=== PATIENT | female | born 1985 | race Caucasian/White ===

== ENCOUNTER → 2019-11-25 14:55 | Outpatient (CLI) | payer OTHER, SELFPAY ==
[2019-11-25 18:34] LABS: Thyroid Stim Hormone (TSH) 0.65 uIU/mL (0.358-3.74)
== END ==
PROVIDERS: PCP Family Medicine; Referring Provider Family Medicine; Visit Provider Family Medicine
DX: F41.9 Anxiety disorder, unspecified (principal)
CPT/HCPCS: 36415; 84443

== ENCOUNTER → 2020-07-16 16:58 | Outpatient (CLI) | payer OTHER, SELFPAY ==
[2020-07-18 20:07] LABS: Chlamydia By Nucleic Acid AMP Negative (Negative)
[2020-07-18 21:05] LABS: Gonococcus By Nucleic Acid AMP Negative (Negative)
[2020-07-19 11:33] LABS: HPV APTIMA, High Risk Negative (Negative)
== END ==
PROVIDERS: PCP Family Medicine; Visit Provider Student in an Organized Health Care Education/Training Program
DX: Z12.4 Encounter for screening for malignant neoplasm of cervix (principal); Z11.3 Encounter for screening for infections with a predominantly sexual mode of transmission; Z32.01 Encounter for pregnancy test, result positive
CPT/HCPCS: 87491; 87591; 87624; 88175; G0145

== ENCOUNTER → 2020-07-30 10:46 | Outpatient (CLI) | payer OTHER, SELFPAY ==
[2020-07-30 12:07] LABS: Absolute Lymphocyte Count 1.57 X10^3/uL (0.83-4.51); Absolute Neutrophil Count 6.1 X10^3/uL (2.0-7.7); Basophil# 0.02 X10^3/uL; Basophil% 0.2 % (0-1); Eosinophil# 0.03 X10^3/uL; Eosinophils% 0.4 % (0-5); Hematocrit 40.5 % (37-47); Hemoglobin 13.4 g/dL (12.0-15.0); Lymphocyte # 1.57 X10^3/ul (0.83-4.51); Lymphocyte % 19.2 % (19-41); Mean Corp Hgb Conc 33.1 g/dL (32-36); Mean Corpuscular Hgb 29.3 pg (27.0-32.0); Mean Corpuscular Volume 88.4 fL (81-99); Mean Platelet Vol. 9.4 fl (6.2-12.0); Monocyte# 0.42 X10^3/uL; Monocyte% 5.1 % (0-10); NRBC Flagged by Analyzer 0 % (0-5); Neutrophil # 6.11 X10^3/uL (2.7-7.7); Neutrophil % 74.7 % (47-70); Platelet Count 299 K/mm3 (150-450); RBC Distribution Width CV 12.9 % (11.6-14.6); Red Blood Count 4.58 M/mm3 (4.2-5.4); White Blood Count 8.2 K/mm3 (4.4-11.0)
== END ==
PROVIDERS: PCP Family Medicine; Visit Provider Student in an Organized Health Care Education/Training Program
DX: Z34.81 Encounter for supervision of other normal pregnancy, first trimester (principal)
CPT/HCPCS: 36415; 85025; 87086; 87088; 87186

== ENCOUNTER → 2020-08-27 09:40 | Outpatient (CLI) | payer OTHER, SELFPAY ==
[2020-08-27 10:47] LABS: Absolute Lymphocyte Count 1.38 X10^3/uL (0.83-4.51); Basophil# 0.03 X10^3/uL; Basophil% 0.3 % (0-1); Eosinophil# 0.05 X10^3/uL; Eosinophils% 0.6 % (0-5); Hematocrit 38.1 % (37-47); Hemoglobin 12.8 g/dL (12.0-15.0); Lymphocyte # 1.38 X10^3/ul (0.83-4.51); Lymphocyte % 15.6 % (19-41); Mean Corp Hgb Conc 33.6 g/dL (32-36); Mean Corpuscular Hgb 29.9 pg (27.0-32.0); Mean Platelet Vol. 9.5 fl (6.2-12.0); Monocyte# 0.37 X10^3/uL; Monocyte% 4.2 % (0-10); NRBC Flagged by Analyzer 0 % (0-5); Neutrophil # 6.97 X10^3/uL (2.7-7.7); Platelet Count 269 K/mm3 (150-450); RBC Distribution Width CV 13.4 % (11.6-14.6); RBC Distribution Width SD 44.1 fl (35.1-43.9); Red Blood Count 4.28 M/mm3 (4.2-5.4); White Blood Count 8.8 K/mm3 (4.4-11.0)
[2020-08-27 11:35] LABS: HIV - WCH Non-Reactive (Nonreactive); Hepatitis B Surface Antigen Non-Reactive (Nonreactive); Hepatitis C Antibody Non-Reactive (Nonreactive); Rubella IgG Reactive (Nonreactive); Syphilis Antibodies Non-reactive
== END ==
PROVIDERS: PCP Family Medicine; Visit Provider Student in an Organized Health Care Education/Training Program
DX: Z34.82 Encounter for supervision of other normal pregnancy, second trimester (principal)
CPT/HCPCS: 36415; 85025; 86703; 86762; 86780; 86803; 87077; 87086; 87088; 87186; 87340

== ENCOUNTER → 2020-09-28 11:08 | Outpatient (CLI) | payer OTHER, SELFPAY ==
[2020-09-28 11:12] LABS: Bacteria 0 SEEN /hpf (None Seen); Mucous, Urine 0 SEEN /hpf (<or=2+); Red Blood Cells-Urine 0 SEEN /hpf (0-5); Squamous Epithelial Cells - UA 0 SEEN /hpf (5-10); White Blood Cells 0 SEEN /hpf (0-5)
[2020-09-28 11:59] LABS: Color, Urine Yellow (Yellow); Glucose, Dipstick Normal (Normal); Ketone-Dipstick Negative (Negative); Leukocyte Esterase-Dipstick Negative /ul (Negative); Nitrite-Dipstick Negative (Negative); Occult Blood-Urine Negative /ul (Negative); Protein-Dipstick Negative (Negative); Specific Gravity, Urine 1.005 (1.002-1.030); Urine Bilirubin Dipstick Negative (Negative); Urine Clarity Clear (Clear); Urine Urobilinogen Normal (Normal)
== END ==
PROVIDERS: PCP Family Medicine; Visit Provider Obstetrics & Gynecology
DX: O26.892 Other specified pregnancy related conditions, second trimester (principal); R30.0 Dysuria
CPT/HCPCS: 81001; 87086; 87088

== ENCOUNTER → 2020-10-24 11:01 | Outpatient (CLI) | payer OTHER, SELFPAY | PROVIDERS: Visit Provider Obstetrics & Gynecology | DX: Z34.82 Encounter for supervision of other normal pregnancy, second trimester (principal) | CPT/HCPCS: 36415 ==

== ENCOUNTER → 2020-11-23 09:49 | Outpatient (CLI) | payer OTHER, SELFPAY ==
[2020-11-23 10:10] LABS: Hematocrit 36.1 % (37-47); Hemoglobin 12.3 g/dL (12.0-15.0); Mean Corp Hgb Conc 34.1 g/dL (32-36); Mean Corpuscular Hgb 31.6 pg (27.0-32.0); Mean Corpuscular Volume 92.8 fL (81-99); Platelet Count 252 K/mm3 (150-450); RBC Distribution Width CV 13.1 % (11.6-14.6); RBC Distribution Width SD 44.3 fl (35.1-43.9); Red Blood Count 3.89 M/mm3 (4.2-5.4); White Blood Count 8.9 K/mm3 (4.4-11.0)
[2020-11-23 10:41] LABS: Glucose Challenge Gest 1H 50g 163 mg/dL (70-140)
== END ==
PROVIDERS: Visit Provider Obstetrics & Gynecology
DX: Z34.82 Encounter for supervision of other normal pregnancy, second trimester (principal)
CPT/HCPCS: 36415; 82950; 85027

== ENCOUNTER → 2020-12-03 09:58 | Outpatient (CLI) | payer OTHER, SELFPAY ==
[2020-12-03 11:36] LABS: Glucose GTT-Gestation. Fasting 81 mg/dL (<105)
[2020-12-03 12:34] LABS: Glucose GTT-Gestational 1 Hr 204 mg/dL (<190)
[2020-12-03 12:51] LABS: Glucose GTT-Gestational 2 Hr 160 mg/dL (<165)
[2020-12-03 14:20] LABS: Glucose GTT-Gestational 3 Hr 49 L (<145)
== END ==
PROVIDERS: PCP Family Medicine; Referring Provider Obstetrics & Gynecology; Visit Provider Obstetrics & Gynecology
DX: O24.912 Unspecified diabetes mellitus in pregnancy, second trimester (principal); Z3A.00 Weeks of gestation of pregnancy not specified
CPT/HCPCS: 36415; 82951; 82952

== ENCOUNTER → 2020-12-28 14:22 | Outpatient (CLI) | payer OTHER, SELFPAY | PROVIDERS: PCP Family Medicine; Visit Provider Obstetrics & Gynecology | DX: Z34.83 Encounter for supervision of other normal pregnancy, third trimester (principal) | CPT/HCPCS: 87086; 87088; 87186 ==

== ENCOUNTER 2021-01-13 13:15 | Outpatient (CLI) | payer OTHER, SELFPAY ==
[2021-01-13 13:22] VITALS: BMI 28.0
[2021-01-13 13:32] VITALS: BP 137/88; PULSE 78; TEMP 37.3
--- NOTE | 2021-01-18 09:23 | OB.TRI.NOTE ---
HPI - General HPI Narrative ROLANDO ROE, is a 35 F who presents for routine nonstress test for gestational diabetes at approximately 33 weeks gestation. Maternal Data Information Final JIMMY: 03/06/21 PFSH PFSH Home Medications aspirin [Aspir-81] 1 mg PO DAILY 01/13/21 [History Last Taken 01/12/21] 95-iron nvp-gzpmw-zpx [ + DHA] 1 pkg PO DAILY 01/13/21 [History Last Taken 01/12/21] Allergy/AdvReac Type Severity Reaction Status Date / Time No Known Allergies Allergy Verified 01/13/21 13:33 NST FHR Rate Baby A NST Reactive:: Yes FHR Category:: Category I Assessment & Plan (1) Gestational diabetes: PLAN: 33-week intrauterine with gestational diabetes for routine nonstress test. NST is reactive. Continuing present care.
== END 2021-01-13 13:55 | disposition home or self-care (01) ==
LOC: WPOUT 13:20 → WP 13:21
PROVIDERS: PCP Family Medicine; Referring Provider Obstetrics & Gynecology; Visit Provider Obstetrics & Gynecology
DX: O24.419 Gestational diabetes mellitus in pregnancy, unspecified control (principal); Z3A.33 33 weeks gestation of pregnancy
CPT/HCPCS: 59025; 59050; 87426; 99218; G0378

== ENCOUNTER → 2021-01-25 11:30 | Outpatient (CLI) | payer OTHER, SELFPAY | PROVIDERS: PCP Family Medicine; Visit Provider Obstetrics & Gynecology | DX: Z34.83 Encounter for supervision of other normal pregnancy, third trimester (principal); R30.0 Dysuria | CPT/HCPCS: 87086; 87088; 87186 ==

== ENCOUNTER → 2021-02-08 11:18 | Outpatient (CLI) | payer OTHER, SELFPAY | PROVIDERS: PCP Family Medicine; Visit Provider Obstetrics & Gynecology | DX: Z36.85 Encounter for antenatal screening for Streptococcus B (principal); Z34.83 Encounter for supervision of other normal pregnancy, third trimester; R30.0 Dysuria | CPT/HCPCS: 87081; 87086 ==

== ENCOUNTER 2021-02-15 10:10 | Outpatient (CLI) | payer OTHER, SELFPAY ==
[2021-02-15 10:20] VITALS: BMI 29.7
--- NOTE | 2021-02-15 12:30 | OB.TRI.NOTE ---
HPI - General HPI Narrative ROLANDO ROE, is a 35 F who presents at 37 2/7 wga (JIMMY 03/06/21) for schedule NST for AMA with GDM. PFSH PFSH Home Medications aspirin [Aspir-81] 1 mg PO DAILY 01/13/21 [History Last Taken 02/14/21 18:00] 95-iron eus-jyjcv-xpz [ + DHA] 1 pkg PO DAILY 01/13/21 [History Last Taken 02/14/21 18:00] Allergy/AdvReac Type Severity Reaction Status Date / Time No Known Allergies Allergy Verified 01/13/21 13:33 NST FHR Rate Baby A Baseline: 135 Variability:: Moderate Accelerations:: 15 x 15 Decelerations:: None NST Reactive:: Yes FHR Category:: Category I Uterine Activity:: no contractions Assessment & Plan (1) : QUALIFIERS: Weeks of gestation: 37 weeks Qualified Code(s): Z3A.37 - 37 weeks gestation of (2) AMA (advanced maternal age) multigravida 35+: QUALIFIERS: Trimester: third trimester Qualified Code(s): O09.523 - Supervision of elderly multigravida, third trimester (3) Gestational diabetes: QUALIFIERS: Gestational diabetes mellitus control: diet-controlled Trimester: third trimester Qualified Code(s): O24.410 - Gestational diabetes mellitus in , diet controlled
== END 2021-02-15 11:00 | disposition home or self-care (01) ==
LOC: WPOUT 10:17 → WP 10:18
PROVIDERS: PCP Family Medicine; Visit Provider Obstetrics & Gynecology
DX: O24.410 Gestational diabetes mellitus in pregnancy, diet controlled (principal); O09.523 Supervision of elderly multigravida, third trimester; Z3A.37 37 weeks gestation of pregnancy; Z79.82 Long term (current) use of aspirin
CPT/HCPCS: 59025; 59050; 99218; G0378

== ENCOUNTER 2021-03-01 05:00 | Inpatient (IN) | payer OTHER, SELFPAY ==
[2021-03-01] VITALS (23 sets, daily range): BP systolic 116–156; BP diastolic 79–93; PULSE 56–75; RESP 13–18; TEMP 36.2–37.1; O2SAT 97–100; BMI 28.8
[2021-03-01] MEDS: Lactated Ringers 1,000 ML 999 ML IV (05:35)
[2021-03-01 05:44] LABS: Absolute Lymphocyte Count 1.51 X10^3/uL (0.83-4.51); Absolute Neutrophil Count 5.7 X10^3/uL (2.0-7.7); Basophil# 0.04 X10^3/uL; Basophil% 0.5 % (0-1); Eosinophil# 0.09 X10^3/uL; Eosinophils% 1.1 % (0-5); Hematocrit 37.9 % (37-47); Hemoglobin 12.8 g/dL (12.0-15.0); Lymphocyte # 1.51 X10^3/ul (0.83-4.51); Lymphocyte % 18.9 % (19-41); Mean Corp Hgb Conc 33.8 g/dL (32-36); Mean Corpuscular Hgb 30.9 pg (27.0-32.0); Mean Corpuscular Volume 91.5 fL (81-99); Mean Platelet Vol. 9.4 fl (6.2-12.0); Monocyte# 0.58 X10^3/uL; Monocyte% 7.3 % (0-10); NRBC Flagged by Analyzer 0 % (0-5); Neutrophil % 71.4 % (47-70); Platelet Count 202 K/mm3 (150-450); RBC Distribution Width CV 12.9 % (11.6-14.6); RBC Distribution Width SD 42.8 fl (35.1-43.9); Red Blood Count 4.14 M/mm3 (4.2-5.4)
[2021-03-01] MEDS: Acetaminophen 500 MG Tablet 1000 MG PO ×3 (06:19→18:06)
[2021-03-01] MEDS: Lactated Ringers 1,000 ML 150 ML IV (06:28)
[2021-03-01 06:30] LABS: Bedside Glucose 74 mg/dL (70-110)
[2021-03-01] MEDS: Sodium Citrate/Citric Acid 30 ML UDC PO (07:24)
--- NOTE | 2021-03-01 07:32 | HP.PCM.OB_ITS ---
HPI - General General Date of Admission: 03/01/21 HPI Narrative ROLANDO ROE, is a 35 F who presents for scheduled C/S for breech presentation, also with c/o leaking of amnionitic fluid and contractions. issues -Gestational DM -Breech presentation -Recurrent UTI -AMA -Anxiety Maternal Data Information JIMMY Calculator Estimated Delivery Date Method Current WG Current Estimate 03/06/21 LMP (Certain) 39w 2d PFSH PFSH Medical History Anxiety Arm fracture, left Gestational diabetes Home Medications aspirin [Aspir-81] 1 mg PO DAILY 01/13/21 [History Last Taken 02/14/21 18:00] 95-iron xkx-kyjhm-wry [ + DHA] 1 pkg PO DAILY 01/13/21 [History Last Taken 02/27/21] Allergy/AdvReac Type Severity Reaction Status Date / Time No Known Allergies Allergy Verified 01/13/21 13:33 Family History Father Diabetes Surgical History H/O spinal fusion History of back surgery Social History Smoking Status: Former smoker History 2 Elective abortions Hx Para 1 Spontaneous abortions Hx # Term Pregnancies 1 Ectopic pregnancies Hx # Pregnancies Multiple births # of living children 1 Vital Signs Vital Signs Vital Signs: 03/01/21 05:45 03/01/21 06:36 03/01/21 06:37 Temperature 97.4 F L Temperature Source Temporal Pulse Rate 64 64 66 Respiratory Rate 18 Blood Pressure 156/89 H 129/91 H 129/91 H Blood Pressure Mean 103 BP Systolic 156 129 BP Diastolic 89 91 Pulse Ox 98 Oxygen Delivery Method Room Air Weight Weight: 73.936 kg Body Mass Index (BMI) 28.8 Physical Exam Const alert, oriented x3 and no apparent distress HEENT normocephalic Resp normal respiratory effort, normal air movement and clear to auscultation bilaterally Cardio regular rate and regular rhythm GI normal to inspection, nondistended, normoactive bowel sounds, soft to palpation, non-tender and non-distended Inspection: gravid Labs Labs Labs: Blood Type O POSITIVE Antibody Screen NEGATIVE Hct 37.9 % (37-47) Hgb 12.8 g/dL (12.0-15.0) Syphilis Total Ab Non-reactive Rubella IgG Antibody Reactive (Nonreactive) Hep Bs Antigen Non-Reactive (Nonreactive) Neisseria gonorrhoeae DNA (VIVEK) Negative (Negative) HIV 1&2 Antibody Non-Reactive (Nonreactive) Glucose 1 Hr 50 gm 163 mg/dL (70-140) H Miscellaneous Test Assessment & Plan (1) Gestational diabetes: QUALIFIERS: Gestational diabetes mellitus control: diet-controlled Trimester: third trimester Qualified Code(s): O24.410 - Gestational diabetes mellitus in , diet controlled (2) : QUALIFIERS: Weeks of gestation: 37 weeks Qualified Code(s): Z3 A.37 - 37 weeks gestation of PLAN: Proceed with primary C/S for breech presentation (3) AMA (advanced maternal age) multigravida 35+: QUALIFIERS: Trimester: third trimester Qualified Code(s): O09.523 - Supervision of elderly multigravida, third trimester
[2021-03-01] MEDS: Cefazolin 2 GM in 0.9% Normal Saline 100 ML IV (07:35)
[2021-03-01 07:49] LABS: Amphetamine Urine VISTA NEGATIVE (<1000 ng/mL); Barbiturate Urine VISTA NEGATIVE (< 200 ng/mL); Benzodiazepine Urine VISTA NEGATIVE (< 200 ng/mL); Cocaine Urine VISTA NEGATIVE (< 300 ng/mL); Ecstacy Urine VISTA NEGATIVE (< 500 ng/mL); Methadone Urine VISTA NEGATIVE (< 300 ng/mL); PCP Urine VISTA NEGATIVE (< 25 ng/mL); THC Urine VISTA NEGATIVE (< 50 ng/mL); Vista UDS pH Range 7
--- NOTE | 2021-03-01 08:29 | OP.PCM_ITS ---
Assessment & Plan (1) Breech delivery: COMMENT: Footling (2) delivery delivered: (3) Gestational diabetes: QUALIFIERS: Gestational diabetes mellitus control: diet-controlled Trimester: third trimester Qualified Code(s): O24.410 - Gestational diabetes mellitus in , diet controlled Maternal Data Information JIMMY Calculator Estimated Delivery Date Method Current WG Current Estimate 03/06/21 LMP (Certain) 39w 2d Details Operative Information Date of Procedure: 03/01/21 Pre-Operative Diagnosis: 1. 39-2/7 weeks gestation 2. breech presentation 3. Spontaneous rupture of membranes Post-Operative Diagnosis: 1. 39-2/7 weeks gestation 2. Footling breech presentation 3. Spontaneous rupture of membranes Indications for : Breech Indications Narrative: 35-year-old 2 para 1-0-0-1 at 39-2/7 weeks gestational age presents for scheduled primary section for breech presentation with complaint of spontaneous rupture of membranes. She was grossly ruptured and 3 cm dilation. She had been counseled regarding delivery risks benefits, indications and alternatives and opted to proceed with section as planned. Classification: Scheduled Procedure Type: low transverse computer systems hardware analyst #1: Lydia Kim Type of Anesthesia: Spinal Anesthesiologist: Jesús Cooper Antibiotic Given: Ancef 2 grams IV x1 Drain: Dumas to straight drain Estimated Blood Loss: 500 ml Fluids Replaced: 1200 ml Findings Description of Procedure: The patient was taken to the operating room and spinal analgesia was administered. She is placed in a dorsal supine position with left lateral tilt. The perineum and abdomen were prepped and draped in sterile fashion. And the spinal was found to be adequate. A Pfannenstiel incision was made using a scalpel and brought down to incise the subcutaneous tissue and rectus fascia at the midline. Subcutaneous tissue was bluntly dissected off the fascia laterally. The fascial incision was dissected laterally and cephalad using curved Henao scissors. The superior leaflet of the rectus fascia was grasped using Ashly clamps and bluntly dissected and sharply dissected from the underlying rectus muscle. In a similar fashion the inferior rectus fascia was dissected from the underlying muscle. The rectus muscles were bluntly at the midline. The peritoneum was identified and entered [sharply]. The bladder blade was placed into the abdomen and the vesicouterine peritoneal fold identified. The fold was incised and a bladder flap created. Bladder blade was then repositioned to the abdomen. A low transverse hysterotomy was made using the [Metzenbaum scissors] to level of the membranes. The hysterotomy was extended bluntly cephalad and caudad. The membranes were then ruptured revealing clear fluid. The breech was palpated and notably single footling breech. While supporting the breech the right knee was flexed and the footling delivered. This was followed by delivery of the breech with delivery to the shoulders using gentle bidirectional rotation with spontaneous delivery of the left lower extremity. The arms were swept through the hysterotomy and the head delivered with ease using the Marceau's Smellie angel maneuver. The implant was stimulated with good cry and respiratory effort. The cord was doubly clamped and cut after 60 seconds and the was passed to awaiting [nursery personnel] for immediate skin to skin. The placenta was [expressed] from the uterus and appeared intact on inspection. The uterus was cleared of debris. The hysterotomy was then repaired using 0 Vicryl running lock suture. A second imbricating layer was also placed for additional hemostasis. The bladder blade was removed. The anterior cul-de-sac was cleared of debris. The peritoneum was reapproximated using 2-0 Vicryl running suture. The rectus fascia was closed using 0 Vicryl running suture. small capillary bleeding controlled using the Bovie device. The subcutaneous tissue was sabrina pproximated using 2-0 Vicryl by the DIRECTOR OF CLINICAL APPLICATIONS under my supervision, who subsequently closed the skin using 4-0 Monocryl subcuticularly. Mepilex occlusive dressing was placed over the incision. The fundus was firm. The patient was then transferred to the recovery room without complication. Sponge, instrument, and needle counts were correct ?2. Infant weight 3020 g Presentation: Positive for Footling Breech Amniotic Membrane Rupture Type: Spontaneous Amniotic Fluid Description: Clear Placental Delivery Description: Expressed Placenta Disposition: [facility] Cord Vessel Description: 3 Vessels Cord Entanglement: None Infant A Gender: Male (1 minute): 8 (5 minute): 9 Delayed Cord Clamping: Yes Complications Risks of Surgery Discussed w/Patient: Bleeding, Anesthesia Risks, Infection and Injury to surrounding structure(s) including bowel and bladder
[2021-03-01] MEDS: Oxytocin 30 units/NS 500 ml 30 UNITS/500 ML IV.SOLN 167 UNITS IV (08:50)
[2021-03-01 08:57] LABS: Protein, Urine (Random) 12.4 mg/dL (<11.9); Protein:Creat Ratio 292 mg/g CRE (0-200)
[2021-03-01] MEDS: Ketorolac 30 MG/ML Syringe IV ×3 (08:59→21:08)
[2021-03-01 10:26] LABS: Bedside Glucose 81 mg/dL (70-110)
[2021-03-01 10:46] LABS: ALB/GLOB Ratio 0.7 RATIO (0.9-2.4); AST(SGOT) 24 U/L (15-37); Alanine Aminotransfer ALT/SGPT 37 U/L (13-56); Albumin, Serum 2.5 g/dL (3.2-5.0); Alkaline Phosphatase 104 U/L (45-117); Anion Gap 7 (5-15); BUN 6 mg/dL (7-18); BUN/Creat Ratio 10.8 RATIO (10-20); Calcium,Total 8.4 mg/dL (8.5-10.1); Chloride 110 mmol/L (98-107); Creatinine, Serum 0.56 mg/dL (0.55-1.02); EST Glomerular Filtration Rate 131 mL/min (>60); Est Glom Filt Rate - Afr Amer 159 mL/min (>60); Estimated Creatinine Clearance 114.88 ml/min; Globulin 3.7 g/dL (2.2-4.2); Glucose 77 mg/dL (74-106); Protein, Total 6.2 g/dL (6.4-8.2); Sodium Level 141 mmol/L (136-145)
[2021-03-01] MEDS: Lactated Ringers 1,000 ML 100 ML IV (12:03)
[2021-03-01] MEDS: 0.9% Saline Lock 10 ML Syringe IV ×2 (15:11→21:11)
[2021-03-01] MEDS: Enoxaparin 40 MG/0.4 ML Syringe SC (20:02)
[2021-03-02] VITALS (9 sets, daily range): BP systolic 133–148; BP diastolic 86–102; PULSE 54–82; RESP 14–18; TEMP 36.5–36.8; O2SAT 96–98
[2021-03-02] MEDS: Acetaminophen 500 MG Tablet 1000 MG PO ×5 (00:10→23:30)
[2021-03-02] MEDS: 0.9% Saline Lock 10 ML Syringe IV (02:58)
[2021-03-02] MEDS: Ketorolac 30 MG/ML Syringe IV (02:58)
[2021-03-02 06:41] LABS: Hematocrit 36.3 % (37-47); Hemoglobin 12.2 g/dL (12.0-15.0); Mean Corp Hgb Conc 33.6 g/dL (32-36); Mean Corpuscular Hgb 31.4 pg (27.0-32.0); Mean Corpuscular Volume 93.3 fL (81-99); Mean Platelet Vol. 9.5 fl (6.2-12.0); Platelet Count 181 K/mm3 (150-450); RBC Distribution Width CV 13.2 % (11.6-14.6); RBC Distribution Width SD 44.9 fl (35.1-43.9); Red Blood Count 3.89 M/mm3 (4.2-5.4); White Blood Count 11.1 K/mm3 (4.4-11.0)
--- NOTE | 2021-03-02 09:24 | PN.OBGYN_ITS ---
Subjective Subjective She is sore this morning. Pain manageable. OOB, ambulating and voiding without difficulty. PAssing flatus, no bowel movement yet. She is , eating well. Objective Data Objective Data Vital Signs: Vital Signs Temp Pulse Resp BP Pulse Ox 97.8 F 61 16 138/96 H 98 03/02/21 03:08 03/02/21 07:00 03/02/21 07:00 03/02/21 03:08 03/02/21 07:00 Oxygen Delivery Method Room Air Weight: 73.936 kg Body Mass Index (BMI) 28.8 Intake & Output: Intake and Output for Last 24 Hours 02/28/21 03/01/21 03/02/21 23:59 23:59 23:59 Intake Total 3705.78 / 3705.78 Output Total 2500 / 2500 900 / 900 Balance 1205.78 / 1205.78 -900 / -900 Lab / Micro Data Result Diagrams: 03/02/21 06:15 03/01/21 09:40 Labs: Laboratory Results - last 24 hr 03/01/21 09:40: Sodium 141, Potassium 4.0, Chloride 110 H, Carbon Dioxide 24.0, Anion Gap 7, BUN 6 L, Creatinine 0.56, Estim Creat Clear Calc 114.88, Est GFR (MDRD) Af Amer 159, Est GFR (MDRD) Non-Af 131, BUN/Creatinine Ratio 10.8, Glucose 77, Calcium 8.4 L, Total Bilirubin 0.30, AST 24, ALT 37, Alkaline Gucci sphatase 104, Total Protein 6.2 L, Albumin 2.5 L, Globulin 3.7, Albumin/Globulin Ratio 0.7 L 03/01/21 10:10: POC Glucose 81 03/02/21 06:15: WBC 11.1 H, RBC 3.89 L, Hgb 12.2, Hct 36.3 L, MCV 93.3, MCH 31.4, MCHC 33.6, RDW Std Deviation 44.9 H, RDW Coeff of Dre 13.2, Plt Count 181, MPV 9.5 Micro: Microbiology 03/01/21 05:30 Nasal Secretion SARS-CoV-2 Antigen (Rapid) - Final ROS Cardiovascular Cardiovascular: Denies chest pain Respiratory/Chest Respiratory/Chest: Denies dyspnea Neurologic Neurologic: Reports headache(s) Physical Exam Const alert, oriented x3 and no apparent distress Resp normal respiratory effort, normal air movement and clear to auscultation bilaterally Cardio regular rate, regular rhythm, S1 normal heart sound and S2 normal heart sound GI normal to inspection, nondistended, normoactive bowel sounds, soft to palpation, non-tender and non-distended GI Narrative: incisional dressing c/d/i Manual OB Exam: other lochia scant Uterus Palpation: uterus fundus firm Extremity no calf tenderness and no pedal edema
--- NOTE | 2021-03-02 09:33 | PCM.DC ---
Discharge Instructions Diet Discharge Diet: No restrictions Activity Discharge Activity: Return to Normal Activity and May Shower May resume sexual activity in: 4-6 weeks Lifting Restrictions: 10 lb Dressing / Incision Call your doctor if you observe: Using more than 1 pad per hour, Shortness of breath, Chest pain, Calf discomfort, Uncontrolled pain and - (Persistent or severe headache) Suture Line Care: Avoid Pulling/Pushing Remove Dressing in: 4 days Cleanse incision/area with: Soap & Water Follow Up Care Please Follow Up With: Shivani Sanchez MD When: 2 weeks for incision and BP check 6 weeks for visit Test Results: Test results from this visit will be discussed in further detail at your follow-up appointment, if applicable. Discharge Plan Admission Admit Date/Time: 03/01/21 05:00 Primary Reason for Your Visit: section Attending Provider: Shivani Sanchez Primary Care Provider: Aditya Escobar Discharge Orders/Prescriptions Prescriptions: New ibuprofen 600 mg Tablet 600 mg PO Q6H PRN PRN (Reason: pain) Qty: 30 RF: 0 oxycodone 5 mg Tablet 5 mg PO Q6H PRN PRN (Reason: Pain Score 4-10) 7 Days Qty: 15 RF: 0 Continued + DHA 28 mg iron-800 mcg-200 mg Combo Pack 1 pkg PO DAILY RF: 0 Discontinued aspirin [Aspir-81] 81 mg Tablet,Delayed Release (Dr/Ec) 1 mg PO DAILY RF: 0 Referrals / Follow Up: Aditya Escobar MD [Primary Care Provider] - Disposition Disposition (needs filled in before D/C Order can be placed): Home, Self Care
[2021-03-02] MEDS: Ibuprofen 600 MG Tablet PO ×3 (10:21→23:29)
[2021-03-02] MEDS: Senna/Docusate Sodium 1 Tablet PO (10:21)
[2021-03-02] MEDS: Prenatal Vits Tablet 1 TABLET PO (10:21)
--- NOTE | 2021-03-02 14:43 | CASEMGMT ---
SW Note Mom: Rodrick PNC: [facility] OB Control: Copper IUD EDC 03/06/21 39 weeks Baby: Brent Angeles 03/01/21 Apgars: 8/9 Weight: 6#11 ounces Fashion Consultant Sales: Richardson Breast feeding. Mother reports that breast feeding is going well. SW met with patient in her room. Patient was alone with the nb. Patient was sitting in a rocking chair and was appropriately bonding and interacting with the nb. MOB's Other Children: Kylah Age 8 Housing: Patient reports she, her , their daughter Kylah and reside in an apartment. Patient's works at [employer] and thus stays with his brothers in [place] 3 days a week. Patient said that her parents came from the [facility] yesterday to help and assist with the and will be staying for 6 months. Transportation: Patient reports that she has access to a car and is able to drive Supplies: Patient reports she has a carseat, crib, bassinet and plans to use cloth diapers. Support: Patient reports her support is her , her boss, her parents and friend, Gabrielle. Education: Patient reports she has her medical degree from the [facility] but had difficulty getting into a residency program in the . 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 She reports that she can take the classes on line at home for 3 months. Patient said that she completed the first semester of her PHD program so she has 3 1/2 years to completion of the program. 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 Patient will be off work for her maternity leave. Agency: Patient denied JFS, CSB or legal involvement. Patient was provided information and pamphlet on Help Me Grow. Patient is not on WIC but was open to a referral to WIC. FOB: Dashawn Padilla Patient and FOB are . Patient reports that she and FOB have been together sine 2008 and for 8 years. Patient reports that the FOB will be involved with the . Employment: FOB is employed at [employer] in [place]. He stays in [place] 3 days a week with his brothers. FOB has medical degree but works as a nurse. Patient said that FOB enjoys his job and his job and coworkers make him happy. Patient said that FOB will be off work 4-5 weeks. FOB MH/AOD/Domestic Violence: None Maternal MH History: Patient talked extensively how when she and her came to the [place] the plan was them to stay with her in laws and they lived with them for 4 years. Patient said that her in laws were toxic. Patient said that she went to the PCP related to anxiety and he recommended behavioral health. Patient reports that she feels her PCP felt that patients anxiety was related to the matching process for residency but she said the anxiety was related to her in laws. Patient said that she feels her anxiety is manageable and that she feels mentally strong. Patient reports that she never had Post depression in the past. Patient said that she is strong in her [place]. Patient denied any SI. Patient said that she really likes her therapist but had been missing appointments due to preparing for the nb. Patient said that her therapist is very supportive and very accommodating. Patient does on line therapy. Patient said that she feels she will probably soon contact her therapist for resumption of counseling. Patient was educated on Post Depression. Patient given handout on Shaken Baby and Safe Sleep. Patient reports that she did not use marijuana during her . She reports that her last use of marijuana was 1 year ago. She said that she vapes THC and that her goes to [place] weekly to get marijuana. Patient said that she equates drinking glass of wine with vaping marijuana. Patient said that she drinks wine and vapes 1x week. SW asked if she plans to continue to vape THC and she said probably not. SW discussed that patient should NOT smoke in front of or in the NB's presence due to lung issues for the nb and patient verbalized understanding. Patient was advised that if she goes outside to vape to ensure an another adult, who is sober, is caring for the . Patient verbalized understanding. SW asked aobut other drug use and patient denied. SW noted that patient's (mother) and nb's tox were negative. nb's mec is pending. SW will continue to watch for results of the mec and depending on results will contact authorities. SW made WIC referral. SW spoke to patient's RN Darcie and she reports no concerns. Plan: Home [facility]
[2021-03-02] MEDS: Enoxaparin 40 MG/0.4 ML Syringe SC (22:48)
[2021-03-03 02:13] VITALS: BP 135/87; PULSE 72; RESP 18
[2021-03-03] MEDS: Ibuprofen 600 MG Tablet PO (06:52)
[2021-03-03] MEDS: Acetaminophen 500 MG Tablet 1000 MG PO (06:52)
[2021-03-03 08:00] VITALS: BP 134/91; PULSE 86; RESP 14; TEMP 37.1; O2SAT 97
--- NOTE | 2021-03-03 09:33 | PCM.PN.OB ---
Subjective Subjective No issues overnight. Denies headache, vision changes, shortness of breath, chest pain. She is sore mostly related to intermittent cramping. The painfulness is manageable with ibuprofen and Tylenol. Passing flatus. No bowel movement yet. Objective Data Objective Data Vital Signs: Vital Signs Temp Pulse Resp BP Pulse Ox 98.8 F 86 14 134/91 H 97 03/03/21 08:00 03/03/21 08:00 03/03/21 08:00 03/03/21 08:00 03/03/21 08:00 Oxygen Delivery Method Room Air Weight: 73.936 kg Body Mass Index (BMI) 28.8 Intake & Output: Intake and Output for Last 24 Hours 03/01/21 03/02/21 03/03/21 23:59 23:59 23:59 Intake Total 3705.78 / 3705.78 Output Total 2500 / 2500 900 / 900 Balance 1205.78 / 1205.78 -900 / -900 Lab / Micro Data Result Diagrams: 03/02/21 06:15 03/01/21 09:40 Micro: Microbiology 03/01/21 05:30 Nasal Secretion SARS-CoV-2 Antigen (Rapid) - Final Physical Exam Const alert, oriented x3 and no apparent distress Resp normal respiratory effort, normal air movement and clear to auscultation bilaterally Cardio regular rate, regular rhythm, S1 normal heart sound and S2 normal heart sound GI normal to inspection, nondistended, normoactive bowel sounds, soft to palpation, non-tender and non-distended GI Narrative: Incisional dressing clean dry and intact Manual OB Exam: other lochia scant Uterus Palpation: uterus fundus firm Extremity no calf tenderness Assessment & Plan (1) delivery delivered: PLAN: Postop day #2 status post uncomplicated LTCS Breast-feeding O+ Blood pressures upper normal, borderline elevated however no evidence of preeclampsia. will prescribe home blood pressure monitor DC home today and follow-up in office in 2 weeks for blood pressure check and incision check
[2021-03-03] MEDS: Prenatal Vits Tablet 1 TABLET PO (10:59)
[2021-03-03] MEDS: Senna/Docusate Sodium 1 Tablet PO (10:59)
== END 2021-03-03 12:15 | disposition home or self-care (01) | DRG 788 ==
PROVIDERS: Admitting Provider Obstetrics & Gynecology; PCP Family Medicine; Visit Provider Obstetrics & Gynecology
PROC: 10D00Z1 Extraction of Products of Conception, Low, Open Approach (ICD-10-PCS; CPT 59514; principal; 2021-03-01 07:15)
DX: O32.1XX0 Maternal care for breech presentation, not applicable or unspecified (principal); O24.420 Gestational diabetes mellitus in childbirth, diet controlled; Z3A.39 39 weeks gestation of pregnancy; Z37.0 Single live birth; Z87.891 Personal history of nicotine dependence; Z83.3 Family history of diabetes mellitus; Z98.1 Arthrodesis status
CPT/HCPCS: 80053; 80307; 82570; 82962; 84156; 85025; 85027; 86850; 86900; 86901; 87426; 99218; J7120; 90686; A4216; G0378

== ENCOUNTER 2021-03-25 14:50 | Outpatient (CLI) | payer OTHER, SELFPAY | END 2021-03-25 23:59 | disposition home or self-care (01) | LOC: LABSPEC 14:57 | PROVIDERS: PCP Family Medicine; Visit Provider Obstetrics & Gynecology | DX: N30.00 Acute cystitis without hematuria (principal) | CPT/HCPCS: 87086; 87088; 87186 ==

== ENCOUNTER 2021-04-04 12:13 | Outpatient (CLI) | payer OTHER, SELFPAY | END 2021-04-04 23:59 | disposition short-term general hospital (02) | LOC: LABSPEC 12:14 | PROVIDERS: PCP Family Medicine; Visit Provider Obstetrics & Gynecology | DX: R30.0 Dysuria (principal) | CPT/HCPCS: 87086; 87088 ==

== ENCOUNTER 2021-04-12 14:13 | Outpatient (CLI) | payer OTHER, SELFPAY ==
[2021-04-15 04:07] LABS: Chlamydia By Nucleic Acid AMP Negative (Negative)
[2021-04-15 11:22] LABS: Gonococcus By Nucleic Acid AMP Negative (Negative)
== END 2021-04-12 23:59 | disposition short-term general hospital (02) ==
LOC: LABSPEC 14:14
PROVIDERS: PCP Family Medicine; Visit Provider Obstetrics & Gynecology
DX: Z11.3 Encounter for screening for infections with a predominantly sexual mode of transmission (principal)
CPT/HCPCS: 87491; 87591

== ENCOUNTER → 2022-06-30 | Outpatient (CLI) | payer OTHER, SELFPAY ==
--- NOTE | 2022-06-30 08:13 | US_ITS ---
STUDY: SUPERFICIAL ULTRASOUND - BACK REASON FOR EXAM: Female, 36 years old. subcut mass on back TECHNIQUE: A superficial ultrasound was performed with real-time and static cramer-scale imaging. COMPARISON: None. FINDINGS: At the site of the clinically palpable lump in the upper middle back there is a cyst or loculated fluid collection possibly seroma measuring approximately 3.1 x 3.2 x 1.3 cm. Superior and medial to the palpable lump there is a second cyst or loculated fluid collection measuring 3.8 x 1.2 x 0.7 cm US/Chest IMPRESSION: Probable cysts or other loculated fluid collections within the soft tissues of the upper back Electronically Signed: Jimbo Toro MD at 21:29 EDT ,
== END | disposition home or self-care (01) ==
LOC: US 08:12
PROVIDERS: PCP Family Medicine; Referring Provider Family Medicine; Visit Provider Family Medicine
DX: R22.2 Localized swelling, mass and lump, trunk (principal)
CPT/HCPCS: 76604

== ENCOUNTER → 2023-08-18 | Outpatient (CLI) | payer OTHER, SELFPAY ==
[2023-08-18 12:31] LABS: Absolute Lymphocyte Count 1.63 X10^3/uL (0.83-4.51); Absolute Neutrophil Count 4.2 X10^3/uL (2.0-7.7); Basophil# 0.03 X10^3/uL; Basophil% 0.5 % (0-1); Eosinophil# 0.08 X10^3/uL; Eosinophils% 1.3 % (0-5); Hematocrit 36.8 % (37-47); Hemoglobin 11.3 g/dL (12.0-15.0); Lymphocyte # 1.63 X10^3/ul (0.83-4.51); Lymphocyte % 25.7 % (19-41); Mean Corp Hgb Conc 30.7 g/dL (32-36); Mean Corpuscular Volume 81.4 fL (81-99); Mean Platelet Vol. 9.7 fl (6.2-12.0); Monocyte# 0.43 X10^3/uL; Monocyte% 6.8 % (0-10); NRBC Flagged by Analyzer 0 % (0-5); Neutrophil # 4.16 X10^3/uL (2.7-7.7); Neutrophil % 65.5 % (47-70); Platelet Count 368 K/mm3 (150-450); RBC Distribution Width CV 16.2 % (11.6-14.6); RBC Distribution Width SD 47.9 fl (35.1-43.9); Red Blood Count 4.52 M/mm3 (4.2-5.4); White Blood Count 6.3 K/mm3 (4.4-11.0)
[2023-08-18 12:48] LABS: Vitamin B12 530 pg/mL (211-911); Vitamin D,25 Hydroxy 22.5 ng/mL
[2023-08-18 13:13] LABS: ALB/GLOB Ratio 0.9 RATIO (0.9-2.4); AST(SGOT) 14 U/L (15-37); Alanine Aminotransfer ALT/SGPT 15 U/L (13-56); Albumin, Serum 3.6 g/dL (3.2-5.0); Alkaline Phosphatase 48 U/L (45-117); Anion Gap 9 (5-15); BUN 16 mg/dL (7-18); BUN/Creat Ratio 25.9 RATIO (10-20); Chloride 104 mmol/L (98-107); Cholesterol 161 mg/dL (200); Creatinine, Serum 0.62 mg/dL (0.55-1.02); EST Glomerular Filtration Rate 115 mL/min (>60); Est Glom Filt Rate - Afr Amer 139 mL/min (>60); Free T4 1.15 ng/dL (0.76-1.46); Glucose 87 mg/dL (74-106); High Density Lipoprotein 64 mg/dL; Potassium 3.8 mmol/L (3.5-5.1); Protein, Total 7.6 g/dL (6.4-8.2); Sodium Level 137 mmol/L (136-145); Thyroid Stim Hormone (TSH) 0.97 uIU/mL (0.358-3.74); Triglycerides 39 mg/dL; Very Low Density Lipoprotein 8 mg/dL (5-40)
[2023-08-19 11:40] LABS: Ferritin 3 ng/mL (8-252)
== END | disposition home or self-care (01) ==
LOC: MFPLAB 09:39
PROVIDERS: PCP Family Medicine; Visit Provider Family Medicine
DX: D64.9 Anemia, unspecified (principal)
CPT/HCPCS: 36415; 80053; 80061; 82306; 82607; 82728; 84439; 84443; 85025